=== PATIENT | male | born 1945 | race Caucasian/White ===

== ENCOUNTER 2024-07-18 18:03 | Emergency (ER) | payer MEDICARE, BC ==
[2024-07-18] MEDS ORDERED: Sodium Chloride 0.9% 10 ML Syringe FLUSH PRN (18:15)
[2024-07-18 18:34] LABS: HEMATOCRIT 26.1 % (40.0-54.0); HEMOGLOBIN 8.4 g/dL (14.0-18.0); MEAN CORPUSCULAR HEMOGLOBIN 37.2 pg (27.0-34.0); MEAN CORPUSCULAR HGB CONC 32.2 g/dL (33.0-35.0); MEAN CORPUSCULAR VOLUME 115.5 fL (80-100); PLATELET COUNT,PLT 428 10^3/uL (150-450); RED BLOOD CELL COUNT 2.26 10^6/uL (4.6-6.2); WHITE BLOOD CELL COUNT,WBC 21.2 10^3/uL (5.0-10.0)
[2024-07-18 18:55] LABS: A/G RATIO 1.2; ANION GAP 16.1 mEq/L (7-13); BILIRUBIN TOTAL 0.8 mg/dL (0.2-1.0); BUN/CREATININE RATIO 22.3 (No establ ref range); CREATININE 2.06 mg/dL (0.70-1.30); EST CRCL DRUG DOSING (CG) 25.81 mL/min; POTASSIUM,K 5.1 mmol/L (3.5-5.1); PROTEIN TOTAL,TP 7.3 g/dL (6.4-8.2)
[2024-07-18 19:06] LABS: LACTIC ACID 2.3 mmol/L (0.4-2.0)
[2024-07-18] MEDS: Azithromycin 250 MG Tab PO ONE (19:18)
[2024-07-18] MEDS: cefTRIAXone 2 GM Vial IVPUSH ONE (19:18)
[2024-07-18 19:30] LABS: APPEARANCE,URINE CLEAR (CLEAR); BILIRUBIN,URINE NEGATIVE (NEGATIVE); COLOR,URINE YELLOW (YELLOW); GLUCOSE,URINE NEGATIVE (NEGATIVE); KETONES,URINE NEGATIVE (NEGATIVE); LEUKOCYTE ESTERASE,URINE NEGATIVE (NEGATIVE); NITRITE,URINE NEGATIVE (NEGATIVE); OCCULT BLOOD,URINE NEGATIVE (NEGATIVE); PROTEIN,URINE TRACE (NEGATIVE)
[2024-07-18] MEDS: Lactated Ringers 1,000 ML IV ONE (19:31)
[2024-07-18 19:54] LABS: BAND PERCENT MAN 5 %; LYMPHOCYTES PERCENT MAN 22 % (20-50); MONOCYTES PERCENT MAN 4 % (2-8); NRBC MANUAL 1 /100WBC; SEG NEUTROPHILS PERCENT MAN 69 % (42-75)
[2024-07-18 20:30] LABS: BACTERIA,URINE RARE /HPF (0-FEW/HPF); EPITHELIAL CELLS,URINE FEW /HPF (NOT SEEN); RBC,URINE 0-5 /HPF (0-5); WBC,URINE 0-5 /HPF (0-5/HPF)
[2024-07-18 21:09] LABS: ANION GAP 14.2 mEq/L (7-13); CALCIUM 8.7 mg/dL (8.5-10.1); CREATININE 1.92 mg/dL (0.70-1.30); EST CRCL DRUG DOSING (CG) 27.69 mL/min; POTASSIUM,K 5.2 mmol/L (3.5-5.1)
== END 2024-07-18 21:00 | disposition home or self-care (01) ==
LOC: DL.ED 18:03
DX: J18.9 Pneumonia, unspecified organism (principal); N17.9 Acute kidney failure, unspecified; Z88.8 Allergy status to other drugs, medicaments and biological substances; Z88.0 Allergy status to penicillin; Z79.899 Other long term (current) drug therapy; Z79.890 Hormone replacement therapy; Z79.51 Long term (current) use of inhaled steroids
CPT/HCPCS: 36415; 71046; 80048; 80053; 81001; 83605; 85025; 87040; 87428-QW; 96361; 96374; 99284-25; A9270-GY; J0696; J7120